=== PATIENT | female | born 1985 ===

== ENCOUNTER 2017-07-22 10:32 | Emergency (ER) | payer OTHER ==
[2017-07-22 10:42] VITALS: BP 128/82; PULSE 87; RESP 16; TEMP 98.3; O2SAT 98
[2017-07-22 10:43] VITALS: BMI 29.0
[2017-07-22] MEDS ORDERED: Oxycodone/Acetaminophen 5/325 mg Tab PO STA (11:44)
--- NOTE | 2017-07-22 12:03 | ED PDOC ---
HPI: General Adult Time Seen by Provider: 07/22/17 11:06 Chief Complaint (Nursing): Breast Problem Chief Complaint (Provider): Breast Pain, Fever History Per: Patient History/Exam Limitations: no limitations Onset/Duration Of Symptoms: Days (x 3), Intermittent Episodes (Fever) Current Symptoms Are (Timing): Still Present Additional Complaint(s): Sarahy is a 32 y/o female with a history of hypothyroidism who presents to the ED complaining of pain in her right breast for the past 3 days associated with intermittent fever. Patient states that she took motrin for the pain with mild relief and has eaten today. She denies nipple discharge and recent trauma or births. She is not currently . PMD: Dr. Deep Whitley Past Medical History Reviewed: Historical Data, Nursing Documentation, Vital Signs Vital Signs: Last Vital Signs Temp 98.3 F 07/22/17 10:41 Pulse 87 07/22/17 10:41 Resp 16 07/22/17 10:41 BP 128/82 07/22/17 10:41 Pulse Ox 98 07/22/17 12:37 - Medical History PMH: Hyperthyroidism, Hypothyroidism - Family History Family History: States: Unknown Family Hx - Home Medications Home Medications: Ambulatory Orders Medication Instructions Recorded Ibuprofen [Motrin] 600 mg PO Q6 #20 tab 11/16/16 Levothyroxine [Synthroid] 112 mcg PO DAILY 11/16/16 Acetaminophen with Codeine 1 tab PO Q6H PRN #10 tab 07/22/17 [Tylenol with Codeine No. 3 300 mg-30 mg] Cephalexin [cephalexin] 500 mg PO QID #27 cap 07/22/17 Naproxen [Naprosyn] 500 mg PO BID PRN #15 tablet 07/22/17 - Allergies Allergies/Adverse Reactions: Allergies Allergy/AdvReac Type Severity Reaction Status Date / Time No Known Allergies Allergy Verified 07/22/17 11:23 Review of Systems ROS Statement: Except As Marked, All Systems Reviewed And Found Negative Constitutional: Positive for: Fever Musculoskeletal: Positive for: Other (Breast pain) Physical Exam - Reviewed Nursing Documentation Reviewed: Yes Vital Signs Reviewed: Yes - Physical Exam Appears: Positive for: Non-toxic, No Acute Distress Head Exam: Positive for: ATRAUMATIC, NORMAL INSPECTION, NORMOCEPHALIC Skin: Positive for: Normal Color, Warm, Dry Respiratory: Negative for: Respiratory Distress Extremity: Positive for: Other (tender right lateral and superior breast. no erythema, edema, irritation, discharge, or peau d'orange. nonfluctuant masses.) - ECG O2 Sat by Pulse Oximetry: 98 (RA) Pulse Ox Interpretation: Normal Medical Decision Making Medical Decision Making: Time: 11:44 Initial Impression: Breast Pain, Fever Initial Plan: --Urine --Keflex --Percocet --Patient was instructed to follow up with PMD for possible referral to breast specialist Scribe Attestation: Documented by Jose G Ronquillo, acting as a scribe for Dr. Laura Lawler. Provider Scribe Attestation: All medical record entries made by the Scribe were at my direction and personally dictated by me. I have reviewed the chart and agree that the record accurately reflects my personal performance of the history, physical exam, medical decision making, and the department course for this patient. I have also personally directed, reviewed, and agree with the discharge instructions and disposition. Disposition - Clinical Impression Clinical Impression: Pain of breast, Mastitis - Disposition Referrals: Deep Whitley, JUAN, MANUSCRIPT READER [Family Provider] - Disposition: Routine/Home Disposition Time: 12:14 Condition: STABLE Prescriptions: Acetaminophen with Codeine [Tylenol with Codeine No. 3 300 mg-30 mg] 1 tab PO Q6H PRN #10 tab PRN Reason: Pain, Severe (8-10) Cephalexin [cephalexin] 500 mg PO QID #27 cap Naproxen [Naprosyn] 500 mg PO BID PRN #15 tablet PRN Reason: Pain, Moderate (4-7) Instructions: Breast Self Exam for Women (ED), Mastitis (ED), Breast Mass (ED) Forms: [employer] (Italian), [facility] ED School/Work Excuse
[2017-07-22] MEDS ORDERED: Oxycodone/Acetaminophen 5/325 mg Tab ONE (12:06)
== END 2017-07-22 12:30 | disposition home or self-care (01) ==
LOC: H.ER 10:32
DX: N64.4 Mastodynia (principal); N61.0 Mastitis without abscess

== ENCOUNTER 2017-10-23 05:47 | Emergency (ER) | payer OTHER ==
[2017-10-23 06:05] VITALS: BMI 32.3
[2017-10-23 06:08] VITALS: BP 142/75; PULSE 108; RESP 18; TEMP 98.2; O2SAT 98
--- NOTE | 2017-10-23 06:55 | ED PDOC ---
HPI: CCC, URI, Sore Throat Time Seen by Provider: 10/23/17 06:21 Chief Complaint (Nursing): Cough, Cold, Congestion Chief Complaint (Provider): Fever, Cough, Congestion History Per: Patient History/Exam Limitations: no limitations Onset/Duration Of Symptoms: Days (x2) Current Symptoms Are (Timing): Still Present Associated Symptoms: Fever, Cough, Nasal Congestion Additional Complaint(s): 32-year-old female with a past medical history of kidney stones, presents to the emergency department complaining of fever, cough, nasal and sinus congestion since yesterday. Patient is also complaining of back pain, which worsens with coughing. No urinary frequency, dysuria, or incontinence. PMD: Dr. Dante De La Cruz Past Medical History Reviewed: Historical Data, Nursing Documentation, Vital Signs Vital Signs: Last Vital Signs Temp 98.2 F 10/23/17 06:05 Pulse 108 H 10/23/17 06:05 Resp 18 10/23/17 06:05 BP 142/75 10/23/17 06:05 Pulse Ox 98 10/23/17 07:04 - Medical History PMH: Hyperthyroidism, Hypothyroidism, Kidney Stones - Surgical History Surgical History: Hernia Repair - Family History Family History: States: Unknown Family Hx - Social History Current smoker - smoking cessation education provided: Yes Alcohol: None Drugs: Denies - Home Medications Home Medications: Ambulatory Orders Medication Instructions Recorded Ibuprofen [Motrin] 600 mg PO Q6 #20 tab 11/16/16 Levothyroxine [Synthroid] 112 mcg PO DAILY 11/16/16 Acetaminophen with Codeine 1 tab PO Q6H PRN #10 tab 07/22/17 [Tylenol with Codeine No. 3 300 mg-30 mg] Cephalexin [cephalexin] 500 mg PO QID #27 cap 07/22/17 Naproxen [Naprosyn] 500 mg PO BID PRN #15 tablet 07/22/17 Amoxicillin/Clavulanate [Augmentin 1 tab PO BID #14 tab 10/23/17 875 MG-125 MG] - Allergies Allergies/Adverse Reactions: Allergies Allergy/AdvReac Type Severity Reaction Status Date / Time No Known Allergies Allergy Verified 10/23/17 06:04 Review of Systems ROS Statement: Except As Marked, All Systems Reviewed And Found Negative Constitutional: Positive for: Fever ENT: Positive for: Nose Congestion Respiratory: Positive for: Cough Genitourinary Female: Negative for: Dysuria, Frequency, Incontinence Musculoskeletal: Positive for: Back Pain Physical Exam - Reviewed Nursing Documentation Reviewed: Yes Vital Signs Reviewed: Yes - Physical Exam Appears: Positive for: Non-toxic, No Acute Distress Head Exam: Positive for: ATRAUMATIC, NORMOCEPHALIC Skin: Positive for: Normal Color, Warm, Dry Eye Exam: Positive for: EOMI, Normal appearance, PERRL ENT: Positive for: Pharynx Is (normal), Nasal Congestion, Other (Sinus tenderness). Negative for: Pharyngeal Erythema, Tonsillar Exudate Neck: Positive for: Normal, Painless ROM, Supple Cardiovascular/Chest: Positive for: Regular Rate, Rhythm. Negative for: Murmur Respiratory: Positive for: Normal Breath Sounds. Negative for: Accessory Muscle Use, Wheezing, Respiratory Distress Gastrointestinal/Abdominal: Positive for: Normal Exam, Soft. Negative for: Tenderness Back: Positive for: Other (paraspinal tenderness at mid back). Negative for: Vertebral Tenderness Extremity: Positive for: Normal ROM. Negative for: Pedal Edema, Deformity Neurologic/Psych: Positive for: Alert, Oriented - ECG O2 Sat by Pulse Oximetry: 98 (RA) Pulse Ox Interpretation: Normal Medical Decision Making Medical Decision Making: Time: 06:50 Initial Impression: Sinusitis, Back Pain Initial Plan: * Patient is medically stable. Will d/c home with rx for Augmentin. Scribe Attestation: Documented by Kimberly Hampton, acting as a scribe for Colin Wellington MD Provider Scribe Attestation: All medical record entries made by the Scribe were at my direction and personally dictated by me. I have reviewed the chart and agree that the record accurately reflects my personal performance of the history, physical exam, medical decision making, and the department course for this patient. I have also personally directed, reviewed, and agree with the discharge instructions and disposition. Disposition - Clinical Impression Clinical Impression: Common cold, URI, acute, Sinusitis - Patient ED Disposition Is Patient to be Admitted: No Counseled Patient/Family Regarding: Diagnosis, Need For Followup, Rx Given - Disposition Referrals: [facility] [Outside] Disposition: Routine/Home Disposition Time: 07:00 Condition: STABLE Additional Instructions: Follow up with your PCP in 2-3 days. Prescriptions: Amoxicillin/Clavulanate [Augmentin 875 MG-125 MG] 1 tab PO BID #14 tab Instructions: Sinusitis (ED)
== END 2017-10-23 07:05 | disposition home or self-care (01) ==
LOC: H.ER 05:47
DX: J32.9 Chronic sinusitis, unspecified (principal); E03.9 Hypothyroidism, unspecified; E05.90 Thyrotoxicosis, unspecified without thyrotoxic crisis or storm; F17.200 Nicotine dependence, unspecified, uncomplicated; Z87.442 Personal history of urinary calculi

== ENCOUNTER 2017-11-29 22:34 | Emergency (ER) | payer MEDICAID, OTHER ==
[2017-11-29 23:38] VITALS: BMI 31.4
[2017-11-29 23:42] VITALS: BP 119/72; PULSE 79; RESP 16; TEMP 97.5; O2SAT 97
[2017-11-29] MEDS ORDERED: Sodium Chloride 0.9% 1,000 ML IV STA (23:52)
--- NOTE | 2017-11-30 00:12 | ED PDOC ---
HPI: Female Pain Time Seen by Provider: 11/29/17 23:51 Chief Complaint (Nursing): Female Genitourinary Chief Complaint (Provider): flank pain, malodorous urine History Per: Patient History/Exam Limitations: no limitations Onset/Duration Of Symptoms: Hrs (approx 16) Current Symptoms Are (Timing): Still Present Quality Of Discomfort: Sharp Associated Symptoms: Nausea, Vomiting, Loss Of Appetite, Back Pain, Urinary Symptoms. denies: Diarrhea Alleviating Factors: None Additional History Per: Prior Records Additional Complaint(s): 32yo female hx renal colic last several months ago now presents c/o R flank pain , associated with nausea/vomiting and malodorous cloudy urine. Denies previous urologic intervention for stones. Denies known fever, chills, anterior abd pain , vaginal complaints or trauma. States on pain mgmt from [place] with percocet TID, awaiting pain mgmt appt in [place]. Out of percocet. [place] [facility] database did not reveal controlled Rx filled. Past Medical History Reviewed: Historical Data, Nursing Documentation, Vital Signs Vital Signs: Last Vital Signs Temp 97.5 F L 11/29/17 23:39 Pulse 79 11/29/17 23:39 Resp 16 11/29/17 23:39 BP 119/72 11/29/17 23:39 Pulse Ox 97 11/29/17 23:39 - Medical History PMH: Hyperthyroidism, Hypothyroidism, Kidney Stones - Surgical History Surgical History: Hernia Repair - Family History Family History: States: Unknown Family Hx - Living Arrangements Living Arrangements: With Family - Social History Drugs: Denies - Home Medications Home Medications: Ambulatory Orders Medication Instructions Recorded Ibuprofen [Motrin] 600 mg PO Q6 #20 tab 11/16/16 Levothyroxine [Synthroid] 112 mcg PO DAILY 11/16/16 Acetaminophen with Codeine 1 tab PO Q6H PRN #10 tab 07/22/17 [Tylenol with Codeine No. 3 300 mg-30 mg] Cephalexin [cephalexin] 500 mg PO QID #27 cap 07/22/17 Naproxen [Naprosyn] 500 mg PO BID PRN #15 tablet 07/22/17 Amoxicillin/Clavulanate [Augmentin 1 tab PO BID #14 tab 10/23/17 875 MG-125 MG] Ciprofloxacin [Cipro] 500 mg PO BID #14 tab 11/30/17 Naproxen [Naprosyn] 500 mg PO BID PRN #14 tablet 11/30/17 oxyCODONE/Acetaminophen [Percocet 1 ea PO Q6 PRN #10 tab 11/30/17 5/325 mg Tab] Cefdinir [Omnicef] 300 mg PO BID #20 cap 12/03/17 - Allergies Allergies/Adverse Reactions: Allergies Allergy/AdvReac Type Severity Reaction Status Date / Time No Known Allergies Allergy Verified 11/29/17 23:38 Review of Systems ROS Statement: Except As Marked, All Systems Reviewed And Found Negative Constitutional: Positive for: Malaise. Negative for: Fever, Chills ENT: Negative for: Throat Pain, Throat Swelling Cardiovascular: Negative for: Chest Pain Respiratory: Negative for: Cough, Shortness of Breath Gastrointestinal: Positive for: Nausea, Vomiting. Negative for: Abdominal Pain , Diarrhea Genitourinary Female: Positive for: Dysuria, Frequency Musculoskeletal: Positive for: Back Pain. Negative for: Neck Pain, Arm Pain, Leg Pain Skin: Negative for: Rash, Lesions, Jaundice Neurological: Negative for: Weakness, Numbness, Headache, Dizziness Physical Exam - Reviewed Nursing Documentation Reviewed: Yes Vital Signs Reviewed: Yes - Physical Exam Appears: Positive for: Well, Non-toxic, No Acute Distress Head Exam: Positive for: ATRAUMATIC, NORMAL INSPECTION, NORMOCEPHALIC Skin: Positive for: Normal Color, Warm, DRY Eye Exam: Positive for: EOMI, Normal appearance, PERRL ENT: Positive for: Normal ENT Inspection Neck: Positive for: Normal, Painless ROM Cardiovascular/Chest: Positive for: Regular Rate, Rhythm Respiratory: Positive for: CNT, Normal Breath Sounds Gastrointestinal/Abdominal: Positive for: Bowel Sounds, Soft. Negative for: Tenderness Back: Positive for: Normal Inspection, L CVA Tenderness (+), R CVA Tenderness (+ +) Extremity: Positive for: Normal ROM Neurologic/Psych: Positive for: Alert, Oriented. Negative for: Motor/Sensory Deficits - Laboratory Results Result Diagrams: 11/30/17 00:10 11/30/17 00:10 - ECG O2 Sat by Pulse Oximetry: 97 Pulse Ox Interpretation: Normal Medical Decision Making Medical Decision Making: workup for renal colic/ pyelo initiated CT report reviewed Antibiotics initiated after cultures obtained Stable for outpt treatmemt but indications for return to ER were discussed. Disposition - Clinical Impression Clinical Impression: Pyelonephritis - Patient ED Disposition Is Patient to be Admitted: No Counseled Patient/Family Regarding: Studies Performed, Diagnosis, Need For Followup, Rx Given - Disposition Referrals: Ruslan Delgado MD [Medical Doctor] - Disposition: Routine/Home Disposition Time: 02:30 Condition: STABLE Additional Instructions: Take antibiotic as directed Return to ER for any worse pain, fever, vomiting or any concern. See urologist and your primary doctor for further testing. Prescriptions: Cefdinir [Omnicef] 300 mg PO BID #20 cap Ciprofloxacin [Cipro] 500 mg PO BID #14 tab Naproxen [Naprosyn] 500 mg PO BID PRN #14 tablet PRN Reason: Pain, Moderate (4-7) oxyCODONE/Acetaminophen [Percocet 5/325 mg Tab] 1 ea PO Q6 PRN #10 tab PRN Reason: Pain, Severe (8-10) Instructions: Urinary Tract Infection in Women (ED), Acute Pyelonephritis (ED) Forms: [employer] (Thai)
[2017-11-30 00:49] LABS: BASO % 0.3 % (0.0-2.0); EOS # 0.2 K/uL (0.0-0.7); EOS % 1.3 % (0.0-4.0); HEMOGLOBIN 12.4 g/dL (12.0-16.0); LYMPH # 2.8 K/uL (1.0-4.3); LYMPH % 24.3 % (20.0-40.0); MEAN CORPUSCULAR HEMOGLOBIN 30.2 pg (27.0-31.0); MEAN CORPUSCULAR HGB CONC 34.4 g/dL (33.0-37.0); MEAN PLATELET VOLUME 8.3 fl (7.2-11.7); MONO % 8.5 % (0.0-10.0); NEUT # 7.5 K/uL (1.8-7.0); NEUT % 65.6 % (50.0-75.0); RBC 4.11 Mil/uL (3.80-5.20); RED CELL DISTRIBUTION WIDTH 13.1 % (11.5-14.5); WHITE BLOOD COUNT 11.5 K/uL (4.8-10.8)
[2017-11-30 01:03] LABS: ALB/GLOB RATIO 1.2 (1.0-2.1); ALBUMIN 4.5 g/dL (3.5-5.0); ALT/SGPT 42 U/L (9-52); AST/SGOT 28 U/L (14-36); BLOOD UREA NITROGEN 16 mg/dl (7-17); CALCIUM 9.5 mg/dL (8.4-10.2); GFR AFRICAN-AMERICAN > 60; GFR NON-AFRICAN AMERICAN > 60
--- NOTE | 2017-11-30 01:08 | CT ---
EXAM: CT Abdomen and Pelvis Without Intravenous Contrast CLINICAL HISTORY: 32 years old, female; Pain; Abdominal pain; Flank; Left; Additional info: L flank pain HX renal colic TECHNIQUE: Axial computed tomography images of the abdomen and pelvis without intravenous contrast. All CT scans at this facility use one or more dose reduction techniques, viz.: automated exposure control; ma/kV adjustment per patient size (including targeted exams where dose is matched to indication; i.e. head); or iterative reconstruction technique. Coronal and sagittal reformatted images were created and reviewed. COMPARISON: No relevant prior studies available. FINDINGS: Lower thorax: Minimal atelectasis. Trace focal pericardial effusion. ABDOMEN: Liver: Fatty infiltration. Gallbladder and bile ducts: No calcified stones. No ductal dilation. Pancreas: Unremarkable. No ductal dilation. Spleen: No splenomegaly. Adrenals: No mass. Kidneys and ureters: Punctate calculus within RIGHT kidney. No hydronephrosis. Stomach and bowel: Segmental areas of probable underdistention of sigmoid colon. No definite mural thickening. No obstruction. Appendix: Normal caliber. No inflammation. PELVIS: Bladder: Unremarkable. No stones. Reproductive: Apparent 2.1 x 1.9 x 1.6 cm hypodense lesion within RIGHT ovary. ABDOMEN and PELVIS: Intraperitoneal space: Trace free fluid within pelvis. No free air. Bones/joints: No acute fracture. Soft tissues: Mild focal stranding/scarring within and subjacent to midline anterior abdominal wall. Vasculature: Few rounded calcifications within pelvis, likely phleboliths. No aneurysm. Lymph nodes: No pathologically enlarged lymph nodes. IMPRESSION: 1. Nonobstructing renal calculus. 2. Possible RIGHT ovarian cyst. Suggest ultrasound. 3. Incidental/non-acute findings are described above.
[2017-11-30 01:14] LABS: SQUAMOUS EPITHIAL 8 /hpf (0-5); URINE BACTERIA MANY (<OCC); URINE BILIRUBIN NEGATIVE (NEGATIVE); URINE BLOOD SMALL (NEGATIVE); URINE CLARITY SLIGHTY-CLOUDY (Clear); URINE COLOR YELLOW (YELLOW); URINE GLUCOSE (UA) NEG (Normal); URINE LEUKOCYTE ESTERASE MOD Leu/uL (Negative); URINE NITRATE POSITIVE (NEGATIVE); URINE PROTEIN NEGATIVE (NEGATIVE); URINE UROBILINOGEN 0.2-1.0 mg/dL (0.2-1.0)
[2017-11-30] MEDS ORDERED: cefTRIAXone (Rocephin) 1 gm Inj ONE (01:54)
== END 2017-11-30 03:38 | disposition home or self-care (01) ==
LOC: H.ER 22:34
DX: N12 Tubulo-interstitial nephritis, not specified as acute or chronic (principal); Z87.442 Personal history of urinary calculi; E05.90 Thyrotoxicosis, unspecified without thyrotoxic crisis or storm; E03.9 Hypothyroidism, unspecified
CPT/HCPCS: 74176; 80053; 81003; 81025; 85025; 87086; 87181; 96361; 96365; 96375; 99284; J0696; J1885; J7040

== ENCOUNTER 2018-01-04 07:23 | Emergency (ER) | payer MEDICAID, OTHER ==
[2018-01-04 07:27] VITALS: BMI 32.3
[2018-01-04 07:29] VITALS: BP 118/71; PULSE 95; RESP 17; TEMP 98.4; O2SAT 96
--- NOTE | 2018-01-04 08:12 | ED PDOC ---
History of Present Illness History of Present Illness: Delaney House is a 32 year old female with a past medical history of hypothyroidism, who presents to the ED with complaints of productive cough with associated chest pain, onset 3-4 days ago. Patient also complains of left ear pain, congestion, and sore throat, associated with difficulty breathing. She reports that her son is sick at home with similar symptoms, and states that she had pneumonia 2 years ago. Patient denies any fevers, nausea, vomiting, or diarrhea. SHe offers no other medical complaints at this time. Denies body aches , fever. Patient does not think she has the flu. PMD:Dante De La Cruz HPI: Influenza Time Seen by Provider: 01/04/18 07:38 Chief Complaint: Flu-like Symptoms Chief Complaint (Provider): Cough, Conjestion History Per: Patient Exam Limitations: no limitations Onset/Duration Of Symptoms: Days (x3) Symptoms include: sore throat, cough, nasal congestion, chest pain, difficulty breathing. denies: fever, vomiting, diarrhea Past Medical History Reviewed: Historical Data, Nursing Documentation, Vital Signs Vital Signs: Last Vital Signs Temp 98.4 F 01/04/18 07:27 Pulse 95 H 01/04/18 07:27 Resp 17 01/04/18 07:27 BP 118/71 01/04/18 07:27 Pulse Ox 96 01/04/18 07:27 - Medical History PMH: Back Problems, Depression, Hypercholesterolemia, Hyperthyroidism, Hypothyroidism, Kidney Stones - Surgical History Surgical History: Hernia Repair, Tonsillectomy - Family History Family History: States: Unknown Family Hx - Social History Current smoker - smoking cessation education provided: Yes - Home Medications Home Medications: Ambulatory Orders Medication Instructions Recorded Ibuprofen [Motrin] 600 mg PO Q6 #20 tab 11/16/16 Levothyroxine [Synthroid] 112 mcg PO DAILY 11/16/16 Acetaminophen with Codeine 1 tab PO Q6H PRN #10 tab 07/22/17 [Tylenol with Codeine No. 3 300 mg-30 mg] Cephalexin [cephalexin] 500 mg PO QID #27 cap 07/22/17 Naproxen [Naprosyn] 500 mg PO BID PRN #15 tablet 07/22/17 Amoxicillin/Clavulanate [Augmentin 1 tab PO BID #14 tab 10/23/17 875 MG-125 MG] Ciprofloxacin [Cipro] 500 mg PO BID #14 tab 11/30/17 Naproxen [Naprosyn] 500 mg PO BID PRN #14 tablet 11/30/17 oxyCODONE/Acetaminophen [Percocet 1 ea PO Q6 PRN #10 tab 11/30/17 5/325 mg Tab] Cefdinir [Omnicef] 300 mg PO BID #20 cap 12/03/17 Albuterol HFA [Ventolin HFA 90 1 - 2 puff IH Q4 PRN #1 inhaler 01/04/18 mcg/actuation (8 g)] Azithromycin [Zithromax] 250 mg PO DAILY #6 tab 01/04/18 Ibuprofen [Motrin Tab] 600 mg PO Q6 PRN #15 tab 01/04/18 Prednisone 50 mg PO DAILY #4 tab 01/04/18 - Allergies Allergies/Adverse Reactions: Allergies Allergy/AdvReac Type Severity Reaction Status Date / Time No Known Allergies Allergy Verified 11/29/17 23:38 Review of Systems ROS Statement: Except As Marked, All Systems Reviewed And Found Negative Constitutional: Negative for: Fever ENT: Positive for: Ear Pain, Nose Congestion, Throat Pain Cardiovascular: Positive for: Chest Pain (secondary to cough) Respiratory: Positive for: Cough, Other (dyspnea) Gastrointestinal: Negative for: Nausea, Vomiting, Diarrhea Physical Exam - Reviewed Nursing Documentation Reviewed: Yes Vital Signs Reviewed: Yes - Physical Exam Appears: Positive for: Non-toxic, No Acute Distress Head Exam: Positive for: ATRAUMATIC, NORMAL INSPECTION, NORMOCEPHALIC Skin: Positive for: Normal Color, Warm, Dry Eye Exam: Positive for: EOMI, Normal appearance, PERRL ENT: Positive for: Pharynx Is (mild erythema), TM Is/Are (left TM is erythematous with bulge) Neck: Positive for: Normal, Painless ROM, Supple Cardiovascular/Chest: Positive for: Regular Rate, Rhythm. Negative for: Murmur Respiratory: Positive for: Wheezing (trace at bases) Gastrointestinal/Abdominal: Positive for: Normal Exam, Soft. Negative for: Tenderness Back: Positive for: Normal Inspection. Negative for: L CVA Tenderness, R CVA Tenderness, Vertebral Tenderness Extremity: Positive for: Normal ROM. Negative for: Pedal Edema, Deformity, Swelling Neurologic/Psych: Positive for: Alert, Oriented. Negative for: Motor/Sensory Deficits Medical Decision Making Medical Decision Making: Time: 8:21 Plan: --BMP --B-Type Natriuretic peptide --ED Urine --CBC --CXR --Duoneb 3 ml INH --Toradol 15 mg IVP --Solu-Medrol 125 IVP --Preak Flow PRE/POST Tx CXR negative labs unremarkable improved in ED w duoneb and solumedrol remains afebrile, no body aches, no malaise, no fatigue, appears well, symptoms ongoing >2 days and low risk for flu complications per CDC guidelines tamiflu not indicated Scribe Attestation: Documented by Josephine Phelan, acting as a scribe for Christiano Evans DO Provider Scribe Attestation: All medical record entries made by the Scribe were at my direction and personally dictated by me. I have reviewed the chart and agree that the record accurately reflects my personal performance of the history, physical exam, medical decision making, and the department course for this patient. I have also personally directed, reviewed, and agree with the discharge instructions and disposition. - Laboratory Results Result Diagrams: 01/04/18 09:07 01/04/18 09:07 - ECG O2 Sat by Pulse Oximetry: 96 (RA) Pulse Ox Interpretation: Normal - Radiology X-Ray: Read By Radiologist X-Ray Interpretation: No Acute Disease Disposition - Clinical Impression Clinical Impression: Upper respiratory infection, Otitis media - Patient ED Disposition Is Patient to be Admitted: No Counseled Patient/Family Regarding: Studies Performed, Diagnosis, Need For Followup, Rx Given, Smoking Cessation (discussed smoking cessation risks of continuing, benefits of quitting and methods to quit) - Disposition Referrals: Dante De La Cruz MD [Primary Care Provider] - Disposition: Routine/Home Disposition Time: 11:02 Condition: STABLE Additional Instructions: See PMD in 2-3 days for followup. Stop smoking. Take medications as directed. Return to ER for any worse or new symptoms. Prescriptions: Albuterol HFA [Ventolin HFA 90 mcg/actuation (8 g)] 1 - 2 puff IH Q4 PRN #1 inhaler PRN Reason: Shortness Of Breath Azithromycin [Zithromax] 250 mg PO DAILY #6 tab Ibuprofen [Motrin Tab] 600 mg PO Q6 PRN #15 tab PRN Reason: Pain, Moderate (4-7) Prednisone 50 mg PO DAILY #4 tab Instructions: Ear Infections (Otitis Media), Viral Upper Respiratory Infection , Adult (DC) Forms: [employer] (Estonian)
[2018-01-04] MEDS ORDERED: Albuterol-Ipratrop 3 mg / 0.5 (3 ml) UD INH STA (08:20)
[2018-01-04] MEDS ORDERED: Albuterol-Ipratrop 3 mg / 0.5 (3 ml) UD ONE (08:24)
[2018-01-04 09:15] LABS: BASO % 0.3 % (0.0-2.0); EOS # 0.3 K/uL (0.0-0.7); HEMOGLOBIN 12.3 g/dL (12.0-16.0); LYMPH # 1.8 K/uL (1.0-4.3); LYMPH % 23.3 % (20.0-40.0); MEAN CELL VOLUME 89.6 fl (81.0-99.0); MEAN CORPUSCULAR HEMOGLOBIN 30.6 pg (27.0-31.0); MEAN CORPUSCULAR HGB CONC 34.2 g/dL (33.0-37.0); MEAN PLATELET VOLUME 8.7 fl (7.2-11.7); MONO # 0.9 K/uL (0.0-0.8); MONO % 12.3 % (0.0-10.0); NEUT # 4.5 K/uL (1.8-7.0); NEUT % 60.1 % (50.0-75.0); RBC 4.02 Mil/uL (3.80-5.20); RED CELL DISTRIBUTION WIDTH 12.9 % (11.5-14.5); WHITE BLOOD COUNT 7.5 K/uL (4.8-10.8)
[2018-01-04 09:39] LABS: BLOOD UREA NITROGEN 10 mg/dl (7-17); CALCIUM 8.7 mg/dL (8.4-10.2); GFR AFRICAN-AMERICAN > 60; GFR NON-AFRICAN AMERICAN > 60
[2018-01-04 09:46] LABS: B-TYPE NATRIURETIC PEPTIDE 33.6 pg/ml (0-450)
--- NOTE | 2018-01-04 10:12 | RAD ---
HISTORY: cough COMPARISON: Chest radiograph dated 05/27/2012 TECHNIQUE: Chest PA and lateral FINDINGS: LUNGS: No active pulmonary disease. PLEURA: No significant pleural effusion identified. No pneumothorax apparent. CARDIOVASCULAR: Normal. OSSEOUS STRUCTURES: No significant abnormalities. VISUALIZED UPPER ABDOMEN: Normal. OTHER FINDINGS: None. IMPRESSION: No active disease.
== END 2018-01-04 11:24 | disposition home or self-care (01) ==
LOC: SUPCPDRO 07:23 → H.ER 07:23
DX: J06.9 Acute upper respiratory infection, unspecified (principal); E03.9 Hypothyroidism, unspecified; E05.90 Thyrotoxicosis, unspecified without thyrotoxic crisis or storm; E78.00 Pure hypercholesterolemia, unspecified; H66.90 Otitis media, unspecified, unspecified ear
CPT/HCPCS: 71046; 80048; 81025; 83880; 85025; 94640; 96374; 99284; J1885; J2930

== ENCOUNTER 2018-01-24 22:45 | Emergency (ER) | payer MEDICAID, OTHER ==
[2018-01-24 22:45] VITALS: BMI 32.3
[2018-01-25] MEDS ORDERED: Sodium Chloride 0.9% 1,000 ML IV STA (00:15)
--- NOTE | 2018-01-25 00:24 | ED PDOC ---
HPI: Abdomen Time Seen by Provider: 01/24/18 23:48 Chief Complaint (Nursing): Female Genitourinary Chief Complaint (Provider): right back/flank pain History Per: Patient History/Exam Limitations: no limitations Onset/Duration Of Symptoms: Days (2) Current Symptoms Are (Timing): Still Present Additional Complaint(s): 32 y/o female presents with right-sided back/flank pain x 1 day. Associated cloudy and "foul" smelling urine x 2 days. Denies fever, nausea/vomiting, chest pain, shortness of breath, changes in bowel movements, hematuria, vaginal bleeding. Patient reports history of kidney stones and states symptoms similar. Past Medical History Reviewed: Historical Data, Nursing Documentation Vital Signs: Last Vital Signs Temp 98.2 F 01/24/18 23:05 Pulse 94 H 01/24/18 23:05 Resp 18 01/24/18 23:05 BP 133/80 01/24/18 23:05 Pulse Ox 100 01/25/18 03:54 - Medical History PMH: Back Problems, Depression, Hypercholesterolemia, Hyperthyroidism, Hypothyroidism, Kidney Stones - Surgical History Surgical History: Hernia Repair, Tonsillectomy - Family History Family History: States: Unknown Family Hx - Home Medications Home Medications: Ambulatory Orders Medication Instructions Recorded Ibuprofen [Motrin] 600 mg PO Q6 #20 tab 11/16/16 Levothyroxine [Synthroid] 112 mcg PO DAILY 11/16/16 Acetaminophen with Codeine 1 tab PO Q6H PRN #10 tab 07/22/17 [Tylenol with Codeine No. 3 300 mg-30 mg] Cephalexin [cephalexin] 500 mg PO QID #27 cap 07/22/17 Naproxen [Naprosyn] 500 mg PO BID PRN #15 tablet 07/22/17 Amoxicillin/Clavulanate [Augmentin 1 tab PO BID #14 tab 10/23/17 875 MG-125 MG] Ciprofloxacin [Cipro] 500 mg PO BID #14 tab 11/30/17 Naproxen [Naprosyn] 500 mg PO BID PRN #14 tablet 11/30/17 oxyCODONE/Acetaminophen [Percocet 1 ea PO Q6 PRN #10 tab 11/30/17 5/325 mg Tab] Cefdinir [Omnicef] 300 mg PO BID #20 cap 02/09/18 Albuterol HFA [Ventolin HFA 90 1 - 2 puff IH Q4 PRN #1 inhaler 01/04/18 mcg/actuation (8 g)] Azithromycin [Zithromax] 250 mg PO DAILY #6 tab 01/04/18 Ibuprofen [Motrin Tab] 600 mg PO Q6 PRN #15 tab 01/04/18 Prednisone 50 mg PO DAILY #4 tab 01/04/18 Ciprofloxacin HCl [Cipro] 500 mg PO BID #14 tab 01/25/18 Naproxen [Naprosyn] 500 mg PO Q12 PRN #20 tablet 01/25/18 - Allergies Allergies/Adverse Reactions: Allergies Allergy/AdvReac Type Severity Reaction Status Date / Time No Known Allergies Allergy Verified 11/29/17 23:38 Review of Systems ROS Statement: Except As Marked, All Systems Reviewed And Found Negative Genitourinary Female: Positive for: Dysuria Musculoskeletal: Positive for: Back Pain Physical Exam - Reviewed Nursing Documentation Reviewed: Yes Vital Signs Reviewed: Yes - Physical Exam Appears: Positive for: Well, Non-toxic, No Acute Distress Head Exam: Positive for: ATRAUMATIC, NORMAL INSPECTION, NORMOCEPHALIC Skin: Positive for: Normal Color Eye Exam: Positive for: Normal appearance ENT: Positive for: Normal ENT Inspection Cardiovascular/Chest: Positive for: Regular Rate, Rhythm Respiratory: Positive for: Normal Breath Sounds Gastrointestinal/Abdominal: Positive for: Bowel Sounds, Soft, Tenderness (right flank) Back: Positive for: R CVA Tenderness Extremity: Positive for: Normal ROM Neurologic/Psych: Positive for: Alert, Oriented - Laboratory Results Result Diagrams: 01/25/18 00:30 01/25/18 00:30 - ECG O2 Sat by Pulse Oximetry: 100 - Progress ED Course And Treament: labs, urine, at renal protocol, IV fluids, IV toradol EXAM: CT Abdomen and Pelvis Without Intravenous Contrast CLINICAL HISTORY: 32 years old, female; Pain; Abdominal pain; Flank; Right; Additional info: Right flank pain TECHNIQUE: Axial computed tomography images of the abdomen and pelvis without intravenous contrast. All CT scans at this facility use one or more dose reduction techniques, viz.: automated exposure control; ma/kV adjustment per patient size (including targeted exams where dose is matched to indication; i.e. head); or iterative reconstruction technique. COMPARISON: CT - ABD PELVIS W/O PO OR IV CONT 2017-11-30 00:33 FINDINGS: Lung bases: Minimal atelectasis/scarring. ABDOMEN: Liver: Fatty infiltration. Gallbladder and bile ducts: No calcified stones. No ductal dilation. Pancreas: Unremarkable. No ductal dilation. Spleen: No splenomegaly. Adrenals: No mass. Kidneys and ureters: Punctate calculus within RIGHT kidney. No hydronephrosis. Stomach and bowel: Moderate amount of stool within colon. No definite mural thickening. No obstruction. Appendix: Normal caliber. No inflammation. PELVIS: Bladder: Unremarkable. No stones. Reproductive: Unremarkable as visualized. ABDOMEN and PELVIS: Intraperitoneal space: No significant fluid collection. No free air. Bones/joints: No acute fracture. Soft tissues: Mild focal stranding/scarring within/subjacent to midline anterior abdominal wall, stable Vasculature: Few rounded calcifications within pelvis, likely phleboliths. No aneurysm. Lymph nodes: No pathologically enlarged lymph nodes. IMPRESSION: 1. Nonobstructing renal calculus. 2. Incidental/non-acute findings are described above. Patient educated on findings, IV rocephin dose given. Patient discharged with rx Naproxen, Cipro. Advised follow up PMD 2-3 days. Fluids. Return precautions given. Disposition - Clinical Impression Clinical Impression: Pyelonephritis - Patient ED Disposition Is Patient to be Admitted: No Counseled Patient/Family Regarding: Studies Performed, Diagnosis, Need For Followup, Rx Given - Disposition Referrals: Dante De La Cruz MD [Primary Care Provider] - Disposition: Routine/Home Disposition Time: 05:00 Condition: IMPROVED Prescriptions: Ciprofloxacin HCl [Cipro] 500 mg PO BID #14 tab Naproxen [Naprosyn] 500 mg PO Q12 PRN #20 tablet PRN Reason: Pain, Moderate (4-7) Instructions: Kidney Infection Forms: [employer] (Swedish)
[2018-01-25 00:51] LABS: BASO % 0.3 % (0.0-2.0); EOS # 0.2 K/uL (0.0-0.7); EOS % 1.7 % (0.0-4.0); HEMOGLOBIN 12.3 g/dL (12.0-16.0); LYMPH # 2.9 K/uL (1.0-4.3); MEAN CELL VOLUME 88.9 fl (81.0-99.0); MEAN CORPUSCULAR HEMOGLOBIN 29.9 pg (27.0-31.0); MEAN CORPUSCULAR HGB CONC 33.6 g/dL (33.0-37.0); MONO % 8.8 % (0.0-10.0); NEUT # 6.8 K/uL (1.8-7.0); NEUT % 62.2 % (50.0-75.0); RBC 4.11 Mil/uL (3.80-5.20); RED CELL DISTRIBUTION WIDTH 13.1 % (11.5-14.5); WHITE BLOOD COUNT 10.9 K/uL (4.8-10.8)
[2018-01-25 01:08] LABS: ALB/GLOB RATIO 1.1 (1.0-2.1); ALBUMIN 4.2 g/dL (3.5-5.0); ALT/SGPT 58 U/L (9-52); AST/SGOT 29 U/L (14-36); BLOOD UREA NITROGEN 19 mg/dl (7-17); CALCIUM 9.8 mg/dL (8.4-10.2); GFR AFRICAN-AMERICAN > 60; GFR NON-AFRICAN AMERICAN > 60
[2018-01-25 01:29] LABS: SQUAMOUS EPITHIAL 8 /hpf (0-5); URINE BACTERIA MANY (<OCC); URINE BILIRUBIN NEGATIVE (NEGATIVE); URINE BLOOD NEGATIVE (NEGATIVE); URINE CLARITY SLIGHTY-CLOUDY (Clear); URINE COLOR YELLOW (YELLOW); URINE GLUCOSE (UA) NEG (Normal); URINE LEUKOCYTE ESTERASE MOD Leu/uL (Negative); URINE PROTEIN 30 mg/dL (NEGATIVE); URINE UROBILINOGEN 0.2-1.0 mg/dL (0.2-1.0)
[2018-01-25 05:37] VITALS: BP 123/70; PULSE 84; RESP 16; TEMP 98.4; O2SAT 96
--- NOTE | 2018-01-25 10:15 | CT ---
PROCEDURE: CT Abdomen and Pelvis without intravenous contrast HISTORY: Right flank pain COMPARISON: 11/30/2017. TECHNIQUE: CT scan of the abdomen and pelvis was performed without administration of intravenous contrast. Oral contrast was not administered. Coronal and sagittal reformatted images were obtained. Radiation dose: Total exam DLP = Total exam DLP = 769.83 mGy-cm. This CT exam was performed using one or more of the following dose reduction techniques: Automated exposure control, adjustment of the mA and/or kV according to patient size, and/or use of iterative reconstruction technique. FINDINGS: LOWER THORAX: There is bibasilar subsegmental atelectasis. LIVER: There is mild hepatomegaly and diffuse fatty infiltration in the liver. No gross lesion or ductal dilatation. GALLBLADDER AND BILE DUCTS: No calcified gallstones. PANCREAS: Normal in size. No gross lesion or ductal dilatation. SPLEEN: Borderline splenomegaly. ADRENALS: No discrete nodule. KIDNEYS AND URETERS: Normal in size. There is a punctate nonobstructing stone in the lower pole of the right kidney. No left nephrolithiasis. No hydronephrosis. VASCULATURE: No aortic aneurysm. BOWEL: The small bowel loops are normal in caliber. There is moderate amount of stool scattered throughout the colon. No bowel dilatation or obstruction. APPENDIX: Normal appendix. PERITONEUM: No free fluid. No free air. LYMPH NODES: No enlarged lymph nodes. BLADDER: Grossly normal in appearance. REPRODUCTIVE: The uterus is normal. BONES: No acute fracture. In size within normal limits for the patient's age. OTHER FINDINGS: None. IMPRESSION: Punctate nonobstructing stone in the lower pole of the right kidney. No obstructive uropathy. Mild hepatomegaly and fatty liver. Borderline splenomegaly. A preliminary report was provided by [employer].
== END 2018-01-25 05:38 | disposition home or self-care (01) ==
LOC: H.ER 22:45
DX: N12 Tubulo-interstitial nephritis, not specified as acute or chronic (principal); E03.9 Hypothyroidism, unspecified; E05.90 Thyrotoxicosis, unspecified without thyrotoxic crisis or storm; E78.00 Pure hypercholesterolemia, unspecified; F32.9 Major depressive disorder, single episode, unspecified; K76.0 Fatty (change of) liver, not elsewhere classified
CPT/HCPCS: 74176; 80053; 81003; 81025; 85025; 87086; 96361; 96365; 96375; 99284; J0696; J1885; J7040

== ENCOUNTER 2018-06-03 12:53 | Emergency (ER) | payer MEDICAID, OTHER ==
[2018-06-03 12:53] VITALS: BMI 32.3
[2018-06-03 13:14] VITALS: BP 139/85; PULSE 85; RESP 18; TEMP 98.3; O2SAT 100
[2018-06-03] MEDS ORDERED: Sodium Chloride 0.9% 1,000 ML IV STA (13:38)
--- NOTE | 2018-06-03 14:10 | ED PDOC ---
HPI: Abdomen Time Seen by Provider: 06/03/18 13:11 Chief Complaint (Nursing): Abdominal Pain Chief Complaint (Provider): Abdominal Pain History Per: Patient History/Exam Limitations: no limitations Onset/Duration Of Symptoms: Days Quality Of Discomfort: "Pain" Associated Symptoms: Nausea, Urinary Symptoms. denies: Fever, Chills, Vomiting , Diarrhea Additional Complaint(s): 32 year old female presents to the ED for an evaluation of abdominal pain and burning sensation when urinating onset for two days. Last night, patient felt uncomfortable and nauseous, had chills and sweats. Today, she noticed blood in her urine and has a decreased urine output. Denies vomiting, diarrhea, fever and rash. PMD: Dante De La Cruz Past Medical History Reviewed: Historical Data, Nursing Documentation, Vital Signs Vital Signs: Last Vital Signs Temp 98.3 F 06/03/18 13:06 Pulse 85 06/03/18 13:06 Resp 18 06/03/18 13:06 BP 139/85 06/03/18 13:06 Pulse Ox 100 06/03/18 14:20 - Medical History PMH: Back Problems, Depression, Hypercholesterolemia, Hyperthyroidism, Hypothyroidism, Kidney Stones - Surgical History Surgical History: Hernia Repair, Tonsillectomy - Family History Family History: States: Unknown Family Hx - Social History Current smoker - smoking cessation education provided: Yes (Light Smoker < 10 Cigarettes Daily) Alcohol: None Drugs: Denies - Home Medications Home Medications: Ambulatory Orders Medication Instructions Recorded Ibuprofen [Motrin] 600 mg PO Q6 #20 tab 11/16/16 Levothyroxine [Synthroid] 112 mcg PO DAILY 11/16/16 Acetaminophen with Codeine 1 tab PO Q6H PRN #10 tab 07/22/17 [Tylenol with Codeine No. 3 300 mg-30 mg] Cephalexin [cephalexin] 500 mg PO QID #27 cap 07/22/17 Naproxen [Naprosyn] 500 mg PO BID PRN #15 tablet 07/22/17 Amoxicillin/Clavulanate [Augmentin 1 tab PO BID #14 tab 10/23/17 875 MG-125 MG] Ciprofloxacin [Cipro] 500 mg PO BID #14 tab 11/30/17 Naproxen [Naprosyn] 500 mg PO BID PRN #14 tablet 11/30/17 oxyCODONE/Acetaminophen [Percocet 1 ea PO Q6 PRN #10 tab 11/30/17 5/325 mg Tab] Cefdinir [Omnicef] 300 mg PO BID #20 cap 12/03/17 Albuterol HFA [Ventolin HFA 90 1 - 2 puff IH Q4 PRN #1 inhaler 01/04/18 mcg/actuation (8 g)] Azithromycin [Zithromax] 250 mg PO DAILY #6 tab 01/04/18 Ibuprofen [Motrin Tab] 600 mg PO Q6 PRN #15 tab 01/04/18 Prednisone 50 mg PO DAILY #4 tab 01/04/18 Ciprofloxacin HCl [Cipro] 500 mg PO BID #14 tab 01/25/18 Naproxen [Naprosyn] 500 mg PO Q12 PRN #20 tablet 01/25/18 - Allergies Allergies/Adverse Reactions: Allergies Allergy/AdvReac Type Severity Reaction Status Date / Time No Known Allergies Allergy Verified 11/29/17 23:38 Review of Systems ROS Statement: Except As Marked, All Systems Reviewed And Found Negative Constitutional: Positive for: Chills, Sweats. Negative for: Fever Gastrointestinal: Positive for: Nausea, Abdominal Pain. Negative for: Vomiting , Diarrhea Genitourinary Female: Positive for: Dysuria, Hematuria. Negative for: Frequency , Incontinence, Vaginal Discharge, Vaginal Bleeding Skin: Negative for: Rash Physical Exam - Reviewed Nursing Documentation Reviewed: Yes Vital Signs Reviewed: Yes - Physical Exam Appears: Positive for: Non-toxic, No Acute Distress Head Exam: Positive for: ATRAUMATIC, NORMAL INSPECTION, NORMOCEPHALIC Skin: Positive for: Normal Color, Warm, Dry Eye Exam: Positive for: Normal appearance, EOMI, PERRL ENT: Positive for: Normal ENT Inspection Neck: Positive for: Normal Cardiovascular/Chest: Positive for: Regular Rate, Rhythm. Negative for: Murmur Respiratory: Positive for: Normal Breath Sounds. Negative for: Decreased Breath Sounds, Wheezing, Respiratory Distress Gastrointestinal/Abdominal: Positive for: Tenderness (mild RLQ), Distended. Negative for: Rebound Back: Positive for: R CVA Tenderness. Negative for: L CVA Tenderness Extremity: Positive for: Normal ROM. Negative for: Tenderness, Pedal Edema, Deformity Neurologic/Psych: Positive for: Alert, Oriented (x3) - Laboratory Results Result Diagrams: 06/03/18 14:00 06/03/18 14:00 Urine dip results: Positive for: Leukocyte Esterase, Blood - ECG O2 Sat by Pulse Oximetry: 100 (RA) Pulse Ox Interpretation: Normal Medical Decision Making Medical Decision Making: Time: 8 Initial Impression: abdominal pain Initial Plan: --Abdomen & Pelvis w/o Contrast PO or IV [CT] --CMP --ED Urine Dipstick --CBC w/ Differential --Flomax 0.4mg --Normal Saline 999mls/hr --Toradol 30mg --Urine culture --IV Insertion --Urinalysis --Reevaluation Urine Dipstick presented large blood and traced leukocytes. Time: 1499 Patient signed out to Dr. Danielle pending reevaluation and disposition. Scribe Attestation: Documented by Shruti Adams, acting as a scribe for Shameka Casillas MD Provider Scribe Attestation: All medical record entries made by the Scribe were at my direction and personally dictated by me. I have reviewed the chart and agree that the record accurately reflects my personal performance of the history, physical exam, medical decision making, and the department course for this patient. I have also personally directed, reviewed, and agree with the discharge instructions and disposition. Disposition - Disposition Disposition: Transfer of Care Disposition Time: 15:00 Condition: STABLE Forms: [employer] (Nicaraguan) Patient Signed Over To: Liz Danielle (pending reevaluation and disposition )
[2018-06-03 14:13] LABS: BASO % 0.4 % (0.0-2.0); EOS # 0.1 K/uL (0.0-0.7); EOS % 1.1 % (0.0-4.0); LYMPH # 2.4 K/uL (1.0-4.3); LYMPH % 26.2 % (20.0-40.0); MEAN CELL VOLUME 88.7 fl (81.0-99.0); MEAN CORPUSCULAR HEMOGLOBIN 30.8 pg (27.0-31.0); MEAN CORPUSCULAR HGB CONC 34.7 g/dL (33.0-37.0); MEAN PLATELET VOLUME 7.8 fl (7.2-11.7); MONO # 0.7 K/uL (0.0-0.8); MONO % 7.7 % (0.0-10.0); NEUT % 64.6 % (50.0-75.0); RBC 4.21 Mil/uL (3.80-5.20); RED CELL DISTRIBUTION WIDTH 13.3 % (11.5-14.5); WHITE BLOOD COUNT 9.3 K/uL (4.8-10.8)
[2018-06-03 14:23] LABS: ALB/GLOB RATIO 1.3 (1.0-2.1); ALBUMIN 4.5 g/dL (3.5-5.0); ALT/SGPT 41 U/L (9-52); AST/SGOT 40 U/L (14-36); BLOOD UREA NITROGEN 13 mg/dl (7-17); CALCIUM 9.4 mg/dL (8.4-10.2); GFR AFRICAN-AMERICAN > 60; GFR NON-AFRICAN AMERICAN > 60
[2018-06-03 14:43] LABS: SQUAMOUS EPITHIAL 8 /hpf (0-5); URINE BILIRUBIN NEGATIVE (NEGATIVE); URINE BLOOD MODERATE (NEGATIVE); URINE CLARITY CLOUDY (Clear); URINE COLOR YELLOW (YELLOW); URINE GLUCOSE (UA) NEG (Normal); URINE LEUKOCYTE ESTERASE MOD Leu/uL (Negative); URINE PROTEIN 30 mg/dL (NEGATIVE); URINE UROBILINOGEN 0.2-1.0 mg/dL (0.2-1.0)
--- NOTE | 2018-06-03 15:12 | ED PDOC ---
- Laboratory Results Result Diagrams: 06/03/18 14:00 06/03/18 14:00 - ECG O2 Sat by Pulse Oximetry: 100 (RA) Pulse Ox Interpretation: Normal Medical Decision Making Medical Decision Making: Time: 1500 Patient endorsed to me by Dr. Casillas pending workup, reevaluation and disposition. Accession No. : [id number] Patient Name / ID : ZEB TILLMAN / [id number] Exam Date : 06/03/2018 14:36:27 ( Approved ) Study Comment : Sex / Age : F / 32Y Creator : Lenny Gonzalez MD Dictator : Lenny Gonzalez MD Block Press Operator : Plastics Repairer : Lenny Gonzalez MD Approver2 : Report Date : 06/03/2018 15:25:49 My Comment : Date of service: 06/03/2018 PROCEDURE: CT Abdomen and Pelvis without intravenous contrast HISTORY: right flank pain with blood in urine COMPARISON: Noncontrast abdomen and pelvis CT 01/25/2018. TECHNIQUE: Technique. Contrast dose: None Radiation dose: Total exam DLP = 878.74 mGy-cm. This CT exam was performed using one or more of the following dose reduction techniques: Automated exposure control, adjustment of the mA and/or kV according to patient size, and/or use of iterative reconstruction technique. FINDINGS: LOWER THORAX: Limited bilateral basilar dependent atelectasis reiterated. LIVER: Liver is diffusely lucent compatible with hepatic steatosis. Hepatomegaly is also identified once again. No definitive mass identified throughout or gross intrahepatic biliary dilatation. Lack of intravenous contrast limits evaluation of solid abdominal viscera. GALLBLADDER AND BILE DUCTS: Unremarkable. PANCREAS: Unremarkable. No gross lesion or ductal dilatation. SPLEEN: Unremarkable. ADRENALS: Unremarkable. No mass. KIDNEYS AND URETERS: Nonobstructing punctate intrarenal calculus re- identified at lower pole right kidney. No obstructive uropathy or perinephric reaction bilaterally. Kidneys appear homogeneous in overall density throughout. Urinary bladder appears unremarkable as well. VASCULATURE: Unremarkable. No aortic aneurysm. BOWEL: Unremarkable. No obstruction. No gross mural thickening. APPENDIX: Unremarkable. Normal appendix. PERITONEUM: Unremarkable. No free fluid. No free air. LYMPH NODES: Unremarkable. No enlarged lymph nodes. BLADDER: Unremarkable. REPRODUCTIVE: There is a moderate left adnexal cyst measuring 5.1 x 4.4 cm. BONES: No acute fracture. OTHER FINDINGS: None. IMPRESSION: 1. Punctate nonobstructing intrarenal calculus reiterated at the lower pole right kidney. No obstructive uropathy identified at the right kidney. No perinephric reaction bilaterally. 2. Hepatomegaly and 5th hepatic steatosis are reiterated. 3. 5.1 cm left adnexal cyst identified in the interval. Follow-up pelvic ultrasonography recommended and clinical correlation. DW pt findings and plan of care. No pain LEFT lower quadrant. Stable for DC. 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 Scribe Attestation: Documented by Shruti Adams, acting as a scribe for Liz Danielle MD Provider Scribe Attestation: All medical record entries made by the Scribe were at my direction and personally dictated by me. I have reviewed the chart and agree that the record accurately reflects my personal performance of the history, physical exam, medical decision making, and the department course for this patient. I have also personally directed, reviewed, and agree with the discharge instructions and disposition. Disposition Counseled Patient/Family Regarding: Studies Performed, Diagnosis, Need For Followup - Clinical Impression Clinical Impression: Ovarian cyst - POA Present On Arrival: None - Disposition Referrals: Willie Santiago MD [Medical Doctor[facility] - [facility]] Dante De La Cruz MD [Family Provider] - Disposition: Routine/Home Disposition Time: 15:51 Condition: STABLE Instructions: Ovarian Cysts, Kidney Stones (DC) Forms: [employer] (Zambian)
--- NOTE | 2018-06-03 15:27 | CT ---
Date of service: 06/03/2018 PROCEDURE: CT Abdomen and Pelvis without intravenous contrast HISTORY: right flank pain with blood in urine COMPARISON: Noncontrast abdomen and pelvis CT 01/25/2018. TECHNIQUE: Technique. Contrast dose: None Radiation dose: Total exam DLP = 878.74 mGy-cm. This CT exam was performed using one or more of the following dose reduction techniques: Automated exposure control, adjustment of the mA and/or kV according to patient size, and/or use of iterative reconstruction technique. FINDINGS: LOWER THORAX: Limited bilateral basilar dependent atelectasis reiterated. LIVER: Liver is diffusely lucent compatible with hepatic steatosis. Hepatomegaly is also identified once again. No definitive mass identified throughout or gross intrahepatic biliary dilatation. Lack of intravenous contrast limits evaluation of solid abdominal viscera. GALLBLADDER AND BILE DUCTS: Unremarkable. PANCREAS: Unremarkable. No gross lesion or ductal dilatation. SPLEEN: Unremarkable. ADRENALS: Unremarkable. No mass. KIDNEYS AND URETERS: Nonobstructing punctate intrarenal calculus re- identified at lower pole right kidney. No obstructive uropathy or perinephric reaction bilaterally. Kidneys appear homogeneous in overall density throughout. Urinary bladder appears unremarkable as well. VASCULATURE: Unremarkable. No aortic aneurysm. BOWEL: Unremarkable. No obstruction. No gross mural thickening. APPENDIX: Unremarkable. Normal appendix. PERITONEUM: Unremarkable. No free fluid. No free air. LYMPH NODES: Unremarkable. No enlarged lymph nodes. BLADDER: Unremarkable. REPRODUCTIVE: There is a moderate left adnexal cyst measuring 5.1 x 4.4 cm. BONES: No acute fracture. OTHER FINDINGS: None. IMPRESSION: 1. Punctate nonobstructing intrarenal calculus reiterated at the lower pole right kidney. No obstructive uropathy identified at the right kidney. No perinephric reaction bilaterally. 2. Hepatomegaly and 5th hepatic steatosis are reiterated. 3. 5.1 cm left adnexal cyst identified in the interval. Follow-up pelvic ultrasonography recommended and clinical correlation.
== END 2018-06-03 16:17 | disposition home or self-care (01) ==
LOC: H.ER 12:53
DX: N20.0 Calculus of kidney (principal); N83.292 Other ovarian cyst, left side
CPT/HCPCS: 74176; 80053; 81003; 81025; 85025; 87086; 87181; 96374; 99284; J1885; J7030

== ENCOUNTER 2018-07-18 08:32 | Emergency (ER) | payer OTHER ==
[2018-07-18 08:32] VITALS: BMI 32.3
--- NOTE | 2018-07-18 09:01 | ED PDOC ---
HPI: Abdomen Time Seen by Provider: 07/18/18 08:44 Chief Complaint (Nursing): Abdominal Pain History Per: Patient Onset/Duration Of Symptoms: Days (4) Current Symptoms Are (Timing): Still Present Severity: Mild Location Of Pain/Discomfort: Diffuse Associated Symptoms: Urinary Symptoms. denies: Nausea, Vomiting, Diarrhea Exacerbating Factors: None Alleviating Factors: None Additional Complaint(s): Abd distention assoc with back pain and urgency x 4 days. Denies fever or dysuria. Denies NVD. Period late x 21/2 weeks, home test neg. Has also been feeling weak and dizzy. Past Medical History Vital Signs: Last Vital Signs Temp 98.8 F 07/18/18 08:36 Pulse 90 07/18/18 08:36 Resp 16 07/18/18 08:36 BP 133/80 07/18/18 08:36 Pulse Ox 97 07/18/18 09:02 - Medical History PMH: Back Problems, Depression, Hypercholesterolemia, Hyperthyroidism, Hypothyroidism, Kidney Stones - Surgical History Surgical History: Hernia Repair, Tonsillectomy - Family History Family History: States: Unknown Family Hx - Home Medications Home Medications: Ambulatory Orders Medication Instructions Recorded Ibuprofen [Motrin] 600 mg PO Q6 #20 tab 11/16/16 Levothyroxine [Synthroid] 112 mcg PO DAILY 11/16/16 Acetaminophen with Codeine 1 tab PO Q6H PRN #10 tab 07/22/17 [Tylenol with Codeine No. 3 300 mg-30 mg] Cephalexin [cephalexin] 500 mg PO QID #27 cap 07/22/17 Naproxen [Naprosyn] 500 mg PO BID PRN #15 tablet 07/22/17 Amoxicillin/Clavulanate [Augmentin 1 tab PO BID #14 tab 10/23/17 875 MG-125 MG] Ciprofloxacin [Cipro] 500 mg PO BID #14 tab 11/30/17 Naproxen [Naprosyn] 500 mg PO BID PRN #14 tablet 11/30/17 oxyCODONE/Acetaminophen [Percocet 1 ea PO Q6 PRN #10 tab 11/30/17 5/325 mg Tab] Cefdinir [Omnicef] 300 mg PO BID #20 cap 12/03/17 Albuterol HFA [Ventolin HFA 90 1 - 2 puff IH Q4 PRN #1 inhaler 03/13/18 mcg/actuation (8 g)] Azithromycin [Zithromax] 250 mg PO DAILY #6 tab 01/04/18 Ibuprofen [Motrin Tab] 600 mg PO Q6 PRN #15 tab 01/04/18 Prednisone 50 mg PO DAILY #4 tab 01/04/18 Ciprofloxacin HCl [Cipro] 500 mg PO BID #14 tab 01/25/18 Naproxen [Naprosyn] 500 mg PO Q12 PRN #20 tablet 01/25/18 Naproxen [Naprosyn] 1 tab PO BID PRN #30 tab 06/03/18 Cephalexin [cephalexin] 500 mg PO TID #15 cap 06/05/18 Ciprofloxacin HCl [Cipro] 500 mg PO BID #20 tab 07/18/18 Tamsulosin [Flomax] 0.4 mg PO DAILY #5 cap 07/18/18 traMADol [Ultram] 50 mg PO Q8 #10 tab 07/18/18 - Allergies Allergies/Adverse Reactions: Allergies Allergy/AdvReac Type Severity Reaction Status Date / Time No Known Allergies Allergy Verified 11/29/17 23:38 Review of Systems ROS Statement: Except As Marked, All Systems Reviewed And Found Negative Gastrointestinal: Positive for: Abdominal Pain Genitourinary Female: Positive for: Other (Urgency) Neurological: Positive for: Dizziness Physical Exam - Reviewed Nursing Documentation Reviewed: Yes Vital Signs Reviewed: Yes - Physical Exam Appears: Positive for: Non-toxic, No Acute Distress Head Exam: Positive for: ATRAUMATIC, NORMAL INSPECTION, NORMOCEPHALIC Skin: Positive for: Normal Color, Warm, DRY Eye Exam: Positive for: EOMI, Normal appearance, PERRL ENT: Positive for: Normal ENT Inspection Neck: Positive for: Normal, Painless ROM Cardiovascular/Chest: Positive for: Regular Rate, Rhythm Respiratory: Positive for: CNT, Normal Breath Sounds Gastrointestinal/Abdominal: Positive for: Soft, Distended. Negative for: Tenderness Back: Positive for: Normal Inspection, R CVA Tenderness Extremity: Positive for: Normal ROM Neurologic/Psych: Positive for: Alert, Oriented - Laboratory Results Result Diagrams: 07/18/18 02:44 07/18/18 09:25 - ECG O2 Sat by Pulse Oximetry: 97 Disposition - Clinical Impression Clinical Impression: Ovarian cyst, Kidney stone - Patient ED Disposition Is Patient to be Admitted: No Counseled Patient/Family Regarding: Studies Performed, Diagnosis, Need For Followup, Rx Given - Disposition Referrals: Christiano Null Jr., MD [Staff Provider] - Disposition: Routine/Home Disposition Time: 12:31 Condition: FAIR Prescriptions: Ciprofloxacin HCl [Cipro] 500 mg PO BID #20 tab Tamsulosin [Flomax] 0.4 mg PO DAILY #5 cap traMADol [Ultram] 50 mg PO Q8 #10 tab Instructions: Kidney Stones in Adults, Ovarian Cysts Forms: [employer] (Iranian)
[2018-07-18 09:42] LABS: BASO % 0.2 % (0.0-2.0); EOS # 0.1 K/uL (0.0-0.7); EOS % 1.9 % (0.0-4.0); LYMPH # 1.3 K/uL (1.0-4.3); LYMPH % 24.8 % (20.0-40.0); MEAN CELL VOLUME 87.7 fl (81.0-99.0); MEAN CORPUSCULAR HEMOGLOBIN 30.2 pg (27.0-31.0); MEAN CORPUSCULAR HGB CONC 34.5 g/dL (33.0-37.0); MEAN PLATELET VOLUME 7.7 fl (7.2-11.7); MONO # 0.6 K/uL (0.0-0.8); MONO % 10.9 % (0.0-10.0); NEUT # 3.3 K/uL (1.8-7.0); NEUT % 62.2 % (50.0-75.0); NRBC % 0.2 % (0.0-0.0); RBC 4.29 Mil/uL (3.80-5.20); RED CELL DISTRIBUTION WIDTH 13.2 % (11.5-14.5); WHITE BLOOD COUNT 5.3 K/uL (4.8-10.8)
[2018-07-18 09:59] LABS: ALB/GLOB RATIO 1.2 (1.0-2.1); ALBUMIN 4.2 g/dL (3.5-5.0); ALT/SGPT 98 U/L (9-52); AST/SGOT 71 U/L (14-36); BLOOD UREA NITROGEN 14 mg/dl (7-17); CALCIUM 9.5 mg/dL (8.4-10.2); GFR NON-AFRICAN AMERICAN > 60
--- NOTE | 2018-07-18 10:02 | CT ---
Date of service: 07/18/2018 PROCEDURE: CT Abdomen and Pelvis without intravenous contrast HISTORY: r/o kidney stone COMPARISON: Noncontrast abdomen and pelvis CT 06/03/2018. TECHNIQUE: Helical CT of the abdomen and pelvis was performed without oral or intravenous contrast as per referring physician request. Coronal and sagittal reformats were generated. Contrast dose: None Radiation dose: Total exam DLP = 835.23 mGy-cm. This CT exam was performed using one or more of the following dose reduction techniques: Automated exposure control, adjustment of the mA and/or kV according to patient size, and/or use of iterative reconstruction technique. FINDINGS: LOWER THORAX: Unremarkable. LIVER: Prominent hepatic steatosis pattern reiterated. GALLBLADDER AND BILE DUCTS: Distended but otherwise unremarkable appearing gallbladder. No radiodense cholelithiasis once again. PANCREAS: Unremarkable. No gross lesion or ductal dilatation. SPLEEN: Unremarkable. ADRENALS: Unremarkable. No mass. KIDNEYS AND URETERS: Punctate intrarenal calculus reiterated lower pole right kidney. No obstructive uropathy bilaterally. No radiodense urolithiasis identified left kidney. No definitive perinephric reaction bilaterally either. VASCULATURE: Unremarkable. No aortic aneurysm. BOWEL: Small-bowel generally appears collapsed. Stomach is also collapsed. The large bowel is distended with retained fecal material increased in volume in the interval suspicious for constipation. Clinically correlate further. APPENDIX: Stable retroperitoneal appendix identified. PERITONEUM: Unremarkable. No free fluid. No free air. LYMPH NODES: Shotty pericecal lymph nodes are reiterated. No definitive lymphadenopathy appreciate throughout the abdomen pelvis otherwise. BLADDER: Unremarkable. REPRODUCTIVE: Slightly diminished left adnexal cyst now measuring 3.6 cm greatest dimension compared to 5.1 cm previously. No significant right axial findings grossly evident. BONES: No acute fracture. OTHER FINDINGS: None. IMPRESSION: 1. Stable punctate intrarenal calculus lower pole right kidney. No obstructive uropathy bilaterally left-sided radiodense urolithiasis. No perinephric reaction bilaterally. Urinary bladder partially decompressed and otherwise nonfocal. 2. Reiteration of hepatic steatosis noted. 3. Diminishing left adnexal cyst still measuring 3.6 cm greatest dimension but as compared to 5.1 cm previously. 4. Likely constipation. Please see discussion above.
[2018-07-18 10:15] LABS: T4 11.4 ug/dl (5.5-11.0)
[2018-07-18 12:38] VITALS: BP 132/74; PULSE 74; RESP 18; TEMP 98.6; O2SAT 98
--- NOTE | 2018-07-18 12:55 | CARD ---
APPROVED REPORT Date of service: 07/18/2018 <Conclusion> Normal sinus rhythm T wave abnormality, consider anterior ischemia Abnormal ECG
== END 2018-07-18 12:40 | disposition home or self-care (01) ==
LOC: H.ER 08:32
DX: R39.15 Urgency of urination (principal); N83.209 Unspecified ovarian cyst, unspecified side; N20.0 Calculus of kidney; Z87.442 Personal history of urinary calculi; Z86.59 Personal history of other mental and behavioral disorders; E05.90 Thyrotoxicosis, unspecified without thyrotoxic crisis or storm